=== PATIENT | female | born 1990 | race Caucasian/White ===

== ENCOUNTER 2022-12-14 06:11 | Outpatient (CLI) | payer MEDICARE, MEDICAID, SELFPAY | END 2022-12-14 06:12 | disposition home or self-care (01) | PROVIDERS: PCP Family Medicine; Visit Provider Family Medicine | DX: E80.6 Other disorders of bilirubin metabolism (principal); R30.0 Dysuria; N39.0 Urinary tract infection, site not specified; E03.9 Hypothyroidism, unspecified; R82.2 Biliuria | CPT/HCPCS: 80053; 80076; 82977; 84443; 87086 ==

== ENCOUNTER 2022-12-15 06:05 | Outpatient (CLI) | payer MEDICARE, MEDICAID, SELFPAY | END 2022-12-15 06:06 | disposition home or self-care (01) | LOC: NFLDREF 06:07 | PROVIDERS: PCP Family Medicine; Visit Provider Family Medicine | DX: E80.6 Other disorders of bilirubin metabolism (principal); R79.89 Other specified abnormal findings of blood chemistry | CPT/HCPCS: 80074 ==

== ENCOUNTER 2022-12-21 07:54 | Outpatient (CLI) | payer MEDICARE, MEDICAID, SELFPAY ==
--- NOTE | 2022-12-21 08:15 | CRLHL7_ITS ---
For Patients: As a result of the Century Cures Act, medical imaging exams and procedure reports are released immediately into your electronic medical record. You may view this report before your referring provider. If you have questions, please contact your health care provider. INDICATION: elevated liver enzymes and bilirubin COMPARISON: none TECHNIQUE: Real time aquino scale imaging and color Doppler analysis was performed of the right upper quadrant. FINDINGS: Hyperechoic area within the central liver measuring 5.0 x 2.6 x 2.2 cm. There is a normal appearance of the hepatic IVC and proximal abdominal aorta. There is no evidence of ascites. The gallbladder is of normal size and there is a 1.3 cm echogenic and shadowing stone within the gallbladder lumen. Additionally, there is dirty shadowing artifact at the fundus. The gallbladder wall measures 2 mm in thickness. The common bile duct is of normal size and measures 5 mm in diameter at the level of the diaz hepatis. The pancreas appears normal. There is no evidence of a stone or hydronephrosis within the right kidney. The right kidney measures 8.9 cm in length. IMPRESSION: 1.3 cm stone in the gallbladder consistent with cholelithiasis. Ring down artifact at the gallbladder fundus consistent with adenomyomatosis. 5 cm intrahepatic hemangioma. Dictated by Micky Henderson MD @ 12/21/2022 9:13:59 AM (Electronically Signed)
== END 2022-12-21 07:55 | disposition home or self-care (01) ==
PROVIDERS: PCP Family Medicine; Visit Provider Family Medicine
DX: R74.8 Abnormal levels of other serum enzymes (principal); K80.20 Calculus of gallbladder without cholecystitis without obstruction; D18.09 Hemangioma of other sites
CPT/HCPCS: 76705

== ENCOUNTER 2023-01-20 07:40 | Outpatient (CLI) | payer MEDICARE, MEDICAID, SELFPAY | END 2023-01-20 07:41 | disposition home or self-care (01) | PROVIDERS: PCP Family Medicine; Referring Provider Family Medicine; Visit Provider Family Medicine | DX: E80.6 Other disorders of bilirubin metabolism (principal); R79.89 Other specified abnormal findings of blood chemistry | CPT/HCPCS: 80053; 80076; 82977 ==

== ENCOUNTER 2023-05-11 15:05 | Outpatient (CLI) | payer MEDICARE, MEDICAID, SELFPAY | END 2023-05-11 15:06 | disposition home or self-care (01) | LOC: NFLDREF 15:06 | PROVIDERS: PCP Family Medicine; Visit Provider Family Medicine | DX: R30.0 Dysuria (principal); R35.0 Frequency of micturition | CPT/HCPCS: 87086 ==

== ENCOUNTER 2023-06-09 12:51 | Outpatient (CLI) | payer MEDICARE, MEDICAID, SELFPAY | END 2023-06-09 12:52 | disposition home or self-care (01) | LOC: NFLDREF 06-10 12:54 | PROVIDERS: PCP Family Medicine; Referring Provider Family Medicine; Visit Provider Registered Nurse | DX: R30.0 Dysuria (principal); R35.0 Frequency of micturition | CPT/HCPCS: 87086 ==